=== PATIENT | female | born 1965 | race Caucasian/White ===

== ENCOUNTER 2020-01-28 18:05 | Emergency (ER) | payer BC ==
[~2020-01-28] VITALS: Ht 170.2 cm; Wt 93.4 kg
[2020-01-28 18:15] VITALS: BP 116/82
[2020-01-28] MEDS ORDERED: TRAZODONE 150150 M1 (18:17)
[2020-01-28] MEDS ORDERED: EFFEXOR 5050 MG/1 T1 PO (18:18)
[2020-01-28] MEDS ORDERED: TOPAMAX100 MG (18:18)
[2020-01-28] MEDS ORDERED: ADDERALL 10 MG10 MG (18:18)
[2020-01-28] MEDS ORDERED: KEFLEX500 M1 PO (19:40)
== END 2020-01-28 19:54 | disposition home or self-care (01) ==
LOC: M.ERS 18:05
DX: S61.011A Laceration without foreign body of right thumb without damage to nail, initial encounter (principal); X58.XXXA Exposure to other specified factors, initial encounter; Y93.89 Activity, other specified; Y92.89 Other specified places as the place of occurrence of the external cause; Y99.8 Other external cause status

== ENCOUNTER 2020-01-31 21:41 | Emergency (ER) | payer BC ==
[~2020-01-31] VITALS: Ht 170.2 cm; Wt 93.4 kg
[~2020-01-31 21:41] MED LIST: ADDERALL 10 MG10 MG; EFFEXOR 5050 MG/1 T1 PO; KEFLEX500 M1 PO; TOPAMAX100 MG; TRAZODONE 150150 M1
[2020-01-31] MEDS ORDERED: REXULTI0.25 MG PO (23:34)
[2020-01-31] MEDS ORDERED: LORAZEPAM 0.50.5 MG PO (23:34)
[2020-02-01 00:02] VITALS: BP 124/83
== END 2020-02-01 00:03 | disposition home or self-care (01) ==
LOC: M.ERS 21:41
DX: Z48.01 Encounter for change or removal of surgical wound dressing (principal); Z98.51 Tubal ligation status; Z98.890 Other specified postprocedural states